=== PATIENT | male | born 1995 | race African-American/Black ===

== ENCOUNTER 2016-08-10 07:41 | Observation (INO) | payer MEDICAID ==
[~2016-08-10] VITALS: Ht 180.3 cm; Wt 63.5 kg
[2016-08-10 09:06] LABS: Hematocrit 47.4 % (41.0-53.0); Hemoglobin 15.5 g/dL (13.5-17.5); Mean Corpuscular Hemoglobin 29.9 pg (28.0-32.0); Mean Corpuscular Hgb Conc. 32.6 g/dL (32.0-36.0); Mean Corpuscular Volume 91.6 fL (80.0-100.0); Mean Platelet Volume 7.6 fL (7.4-10.4); Platelet Count (auto) 340 10^3/uL (140-450); SUSPECT VIEW TRANSMISSION
[2016-08-10] MEDS ORDERED: SODIUM CHLORIDE 0.9% 1,000 ML IVB ONE (09:14)
[2016-08-10] MEDS ORDERED: LORazepam 2MG/ML-1ML VIAL IV ONE (09:15)
[2016-08-10] MEDS ORDERED: LEVETIRACETAM INJ 1,000 MG in SODIUM CHL 0.9% 100 ML IV ONE (09:15)
[2016-08-10 09:19] LABS: Metamyelocytes % 0; Myelocytes % 0; Promyelocytes % 0; Reactive Lymphocytes 0
[2016-08-10 09:35] LABS: Albumin 4.1 g/dL (3.4-5.0); BUN/Creatinine Ratio 7.1; Bilirubin, Total 0.4 mg/dL (0.2-1.0); Calcium 8.7 mg/dL (8.5-10.1); Total Protein 7.7 g/dL (6.4-8.2)
[2016-08-10 09:37] LABS: Platelet Estimate Adequate; RBC Morphology Normal
[2016-08-10 10:06] LABS: Magnesium 3.6 mg/dL (1.6-2.6)
[2016-08-10 10:14] LABS: Urine RBC None Seen /hpf (0 - 3)
[2016-08-10 10:34] LABS: Urine Bilirubin Negative (Negative); Urine Color Yellow (Yellow); Urine Glucose Normal (Normal); Urine Ketone Negative (Negative); Urine Nitrite Negative (Negative); Urine Squamous Epithelial Cell FEW /hpf (<5); Urine Urobilinogen Normal (Negative)
[2016-08-10 10:40] LABS: Urine Blood 1+ /uL (Negative)
[2016-08-10] MEDS ORDERED: SODIUM CHLORIDE 0.9% 1,000 ML IV ONE (12:43)
[2016-08-10] MEDS ORDERED: FUROSEMIDE 20 MG/2 ML VIAL IV ONE (12:45)
[2016-08-10 16:15] VITALS: BP 126/39
== END 2016-08-10 16:35 | disposition home or self-care (01) | DRG 53 ==
LOC: ER 07:44 → OVERFLOW 09:15 → ER 16:35
PROVIDERS: ADMIT Emergency Medicine; ATTEND Emergency Medicine
DX: G40.909 Epilepsy, unspecified, not intractable, without status epilepticus (principal); E83.42 Hypomagnesemia; Z91.14 Patient's other noncompliance with medication regimen
CPT/HCPCS: 36415; 80053; 80320; 81001; 83735; 85007; 85027; 96361; 96365; 96375; 99285; G0378; G0434; J1940; J1953; J2060; J7030

== ENCOUNTER 2020-04-29 21:46 | Emergency (ER) | payer MEDICAID ==
[~2020-04-29] VITALS: Ht 180.3 cm; Wt 77.1 kg
[2020-04-29 21:50] VITALS: BP 150/82
== END 2020-04-29 23:05 | disposition left against medical advice (07) ==
LOC: EDBD 21:46 → ER 21:49
DX: R56.9 Unspecified convulsions (principal); Z53.21 Procedure and treatment not carried out due to patient leaving prior to being seen by health care provider